=== PATIENT | female | born 2005 | race Caucasian/White ===

== ENCOUNTER 2023-12-14 10:36 | Emergency (ER) | payer OTHER, SELFPAY ==
[2023-12-14] VITALS (7 sets, daily range): BP systolic 116–132; BP diastolic 61–85; PULSE 71–85; RESP 18; TEMP 36.9; O2SAT 92–99; BMI 31.5
--- NOTE | 2023-12-14 10:52 | PC.NURSE ---
DR HERNANDEZ AT BEDSIDE
--- NOTE | 2023-12-14 10:55 | US_ITS ---
FINAL REPORT CLINICAL HISTORY: RUQ pain, positive wray sign FINDINGS: Sonographic images of the right upper quadrant were obtained. The pancreas is partially obscured.The liver has an unremarkable appearance. The gallbladder was difficult to evaluate on this exam as it is somewhat contracted. There do appear to be stones and sludge present within the gallbladder, as there is some echogenic material with posterior acoustical shadowing noted. There is no evidence of biliary ductal dilatation.The common duct measures 3 mm. Limited images of the right kidney are unremarkable. IMPRESSION: Gallbladder somewhat difficult to evaluate secondary to contraction. There do appear to be stones and sludge present within the gallbladder, as described above. No biliary ductal dilatation is seen. A follow-up ultrasound would confirm if clinically indicated. Reviewed, Interpreted and Dictated by Alessandro Jacobson MD Transcribed by Kaykay Baker Authenticated and . [facility]
--- NOTE | 2023-12-14 11:00 | HMH.EDGENADL ---
Discharge Plan Disposition Patient Disposition: Home, Self-Care Condition: Good Prescriptions Prescriptions: No Action No Known Home Medications Referrals Follow up/Referrals: Patricia Cheng PA [Primary Care Provider] - See instructions Activity Restrictions/Add. Instructions Additional Instructions/Restrictions: You were evaluated in the emergency department today. You were found to have gallstones and biliary sludge, which could have been causing your symptoms, but labs are otherwise reassuring today. If your symptoms recur, you may need evaluation to potentially have your gallbladder removed. Please keep follow-up with your primary care provider as well as your cardiology team. I would ask for referral to general surgery from your primary care provider and cardiology team for evaluation of your gallbladder just in case it continues to cause you issues. Return to the emergency department for new or worsening symptoms. Clinical Impressions Clinical Impression: Abdominal pain, RUQ, Biliary sludge, Gallstones Stand Alone Forms Stand Alone Forms: Work/School Release Instructions Patient Instructions: DI for Gallstones, DI for Acute Abdominal Pain Discharge ED Provider: Antonette Issa General Adult HPI General Chief complaint: Abdominal Pain Stated complaint: right side pain radiating to back Time Seen by Provider: 12/14/23 10:47 Mode of Arrival: Ambulatory Source of Information: Patient Limitations: No Limitations Description of Symptoms (Recalled from ER Triage Doc. 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 Patient reports that the pain started this morning. She notes that she has a history of issues with her liver secondary to medication that she has been on chronically for her cardiac issues, however she never had pain like this. She notes that it radiates to her back. She denies any fevers, chills, nausea, vomiting, changes in bowel movements, urinary symptoms, or other concerns. She denies any chest pain, shortness of breath, or other concerns as well. She reports compliance with her medications. Related Data Home Medications Medication Instructions Recorded Confirmed No Known Home Medications 02/02/23 02/02/23 Allergies Allergy/AdvReac Type Severity Reaction Status Date / Time No Known Allergies Allergy Verified 02/02/23 17:14 [facility] Disclaimer: The information contained in this section may have been updated after the patient was seen, as this information can be updated by other users. Social History Smoking Status: Never smoker alcohol intake: never current occupational status: employed Travel in the last 8 weeks: None ROS Obtained: Yes All systems reviewed & no additional complaints except as documented Physical Exam General General appearance: alert and in no apparent distress Head Head exam: atraumatic and normocephalic Eye Eye exam: Present normal appearance, PERRL and EOMI ENT ENT exam: Present normal exam, normal oropharynx, mucous membranes moist and normal external ear exam Neck Neck exam: Present normal inspection, full ROM and trachea midline; Absent tenderness Chest Chest inspection: Present normal inspection and symmetric chest wall rise; Absent tenderness Respiratory Respiratory exam: Present normal lung sounds bilaterally; Absent respiratory distress, wheezes, stridor or accessory muscle use Cardiovascular Cardiovascular exam: Present regular rate, normal rhythm and diastolic murmur Abdominal Exam Abdominal exam: Present soft, tenderness (Right upper quadrant) and Burk's sign; Absent distention, guarding, rebound or rigidity Extremities Exam Extremities exam: Present normal inspection, full ROM and normal capillary refill; Absent tenderness or edema Back Exam Back exam: Present normal inspection and full ROM; Absent tenderness Neurological Exam Neurological exam: Present alert, oriented X3, CN II-XII intact and normal gait; Absent motor sensory deficit Psychiatric Psychiatric exam: Present normal affect and normal mood Skin Skin exam: Present warm and dry Medical Decision Making Medical Records Medical records reviewed: Yes I reviewed the patient's medical records. Misha Inquiry Pt receiving controlled substance: No Vital Signs: 12/14/23 10:42 12/14/23 10:45 12/14/23 11:00 Temperature 98.4 F Temperature Source Oral Pulse Rate 85 77 Pulse Rate [Right Radial] 77 Respiratory Rate 18 Blood Pressure 132/85 118/66 Blood Pressure [Right Arm] 132/85 Blood Pressure Mean [Right Arm] 100 02 Sat by Pulse Oximetry 99 92 L 93 L Oxygen Delivery Method Room Air Room Air 12/14/23 11:02 12/14/23 15:00 12/14/23 15:30 Temperature Temperature Source Pulse Rate 81 72 71 Pulse Rate [Right Radial] Respiratory Rate Blood Pressure 116/64 116/61 116/70 Blood Pressure [Right Arm] Blood Pressure Mean [Right Arm] 02 Sat by Pulse Oximetry 94 L 94 L 94 L Oxygen Delivery Method Room Air Room Air Lab Data Lab results reviewed: Yes I reviewed the patient's lab results. Lab Results 12/14/23 10:40: Urine Color Yellow, Urine Appearance Clear, Urine pH 6.0, Ur Specific Aiken >= 1.030, Urine Protein Negative, Urine Glucose (UA) Negative, Urine Ketones Negative, Urine Blood Negative, Urine Nitrate Negative, Urine Bilirubin 1+ A, Urine Urobilinogen 1.0, Ur Leukocyte Esterase Negative, Urine RBC None, Urine WBC 5-10, Ur Squamous Epith Cells 5-10, Urine Bacteria 1+ 12/14/23 10:45: WBC 5.3, RBC 4.62, Hgb 14.6, Hct 44.5, MCV 96.4, MCH 31.6 H, MCHC 32.8, RDW 14.3, Plt Count 133 L, MPV 9.5, Neut % (Auto) 74.3, Lymph % (Auto) 17.1, Knott % (Auto) 5.4, Eos % (Auto) 2.3, Baso % (Auto) 0.9, Neut # (Auto) 3.9, Lymph # (Auto) 0.9, Knott # (Auto) 0.3, Eos # (Auto) 0.1, Baso # (Auto) 0.1, PT 13.6 H, INR 1.28 H, APTT 40.6 H, Sodium 141, Potassium 3.7, Chloride 111 H, Carbon Dioxide 20 L, Anion Gap 13.7, BUN 13, Creatinine 0.50 L, Estimated Creat Clear 229, Estimated GFR 157, Est GFR ( Amer) 190, Glucose 104 H, Calcium 9.6, Total Bilirubin 0.7, AST 24, ALT 30, Alkaline Phosphatase 60, Total Protein 7.7, Albumin 4.7, Globulin 3.0, Albumin/Globulin Ratio 1.6, Lipase 62, Serum HCG, Qual Negative 12/14/23 10:45 12/14/23 10:45 Orders (Tests/Meds): ED MEDICATIONS Generic Name Dose Route Start Last Admin Trade Name Freq PRN Reason Stop Dose Admin Sodium Chloride 10 ml 12/14/23 10:52 Sodium Chloride 0.9% 10ml Flush Syringe IV 01/13/24 10:51 NEEDED PRN Maintain IV Site Discontinued Medications Generic Name Dose Route Start Last Admin Trade Name Freq PRN Reason Stop Dose Admin Iopamidol 70 ml 12/14/23 14:29 12/14/23 14:29 Iopamidol-370 (76%);100ml Bottle IV 12/14/23 14:30 70 ml ONCE ONE Administration Sodium Chloride 50 ml 12/14/23 14:29 12/14/23 14:29 0.9 % Sodium Chloride 50 Ml Vial IV 12/14/23 14:30 50 ml ONCE ONE Administration Sodium Chloride 10 ml 12/14/23 14:29 12/14/23 14:29 Sodium Chloride 0.9% 10ml Syr (Rad Only) IV 12/14/23 14:30 10 ml ONCE ONE Administration ORDERS Category Date Time Status CT abdomen pelvis w con Stat Cat Scan 12/14/23 12:[address] angio chest PE protocol Stat Cat Scan 12/14/23 12:52 Taken US abdomen limited Stat Exams 12/14/23 10:55 Taken Activated Partial Thrombo Time Stat Lab 12/14/23 10:45 Completed Complete Blood Count Auto Diff Stat Lab 12/14/23 10:45 Completed Comprehensive Metabolic Panel Stat Lab 12/14/23 10:45 Completed HCG Qualitative, Serum Stat Lab 12/14/23 10:45 Completed Lipase Stat Lab 12/14/23 10:45 Completed Prothrombin Time INR Stat Lab 12/14/23 10:45 Completed Urinalysis and Microscopic Stat Lab 12/14/23 10:40 Completed Medical Decision Narrative: In summary, this patient is a 18-year-old female presenting to the Emergency Department for evaluation of right upper quadrant abdominal pain. Differential diagnoses considered include but are not limited to cholecystitis, cholelithiasis, hepatitis, pancreatitis, constipation, colitis, worsening IVC thrombus. Ruling out the most morbid conditions drove assessment. It should be noted patient's history includes extensive cardiac history as detailed in HPI as well as her history of IVC thrombus which are believed to be at goal therapy. This complicates all aspects of care by increasing patient's risk for morbidity. I reviewed patient's past medical records at [facility] and noted her previous procedures there is detailed in HPI. On exam, the patient is nontoxic-appearing with reassuring vital signs on cardiac telemetry. She is in no acute distress. She does have right upper quadrant tenderness with positive Burk sign. Otherwise, exam is reassuring. Workup included CBC, CMP, PT, PTT, lipase, urinalysis, test, and right upper quadrant ultrasound. I independently interpreted ultrasound prior to the radiologist read and noted gallstones without findings concerning for cholecystitis. Please see their read for final interpretation. Labs were obtained that demonstrated no leukocytosis, no transaminitis, and normal bilirubin and lipase. CT scan of the chest, abdomen, and pelvis were obtained to further evaluate. On multiple subsequent reassessments, she states that her pain resolved and she is no longer having pain at this time. She has had no nausea, vomiting, or other concerns. CT scan demonstrates gallstones without secondary findings concerning for cholecystitis. I advised the patient that this could be causing her symptoms, but I do not feel that she requires emergent intervention at this time with no fever, resolution of symptoms, and reassuring lab. Advised that she follow-up very closely outpatient for this. I called and had an interactive discussion with [facility] pediatric cardiology, Dr. Boateng, as radiology had noted concern that the Fontan stent was not opacified by IV contrast. Per Dr. Boateng, it is to be expected since her contrast was administered through an upper extremity peripheral IV instead of the lower extremity IV. She stated that she had we wish to evaluate the Fontan anatomy, we would have to place a lower extremity IV for IV contrast. Since the patient symptoms have resolve and is compliant with her home Xarelto d, she states that she feels that this is not necessary at this time. Patient already has close follow-up with them arranged. At this time, it is felt the patient is appropriate for discharge. She was given instructions for close patient follow-up, strict return precautions, and she was discharged in stable condition after all questions were answered. NOTE THAT IF THE PATIENT NEEDS EVALUATION OF FONTAN ANATOMY, PLACE LOWER EXTREMITY IV FOR IV CONTRAST Critical Care Critical Care Time Critical Care Time: No
[2023-12-14 11:01] LABS: Microscopic, Urine URINE MICROSCOPIC (MICROSCOPIC)
[2023-12-14 11:02] LABS: Basophils # 0.1 K/mm3 (0-0.2); Basophils % 0.9 % (0.1-2.0); Eosinophils # 0.1 K/mm3 (0.0-0.4); Eosinophils % 2.3 % (0.1-12.0); Hematocrit 44.5 % (37.0-47.0); Hemoglobin 14.6 g/dL (12.2-16.2); Lymphocytes # 0.9 K/mm3 (0.7-4.5); Lymphocytes % 17.1 % (10-50); Mean Corpuscular HGB Conc 32.8 g/dL (31.8-35.4); Mean Corpuscular Hemoglobin 31.6 pg (27.0-31.2); Mean Corpuscular Volume 96.4 fl (81-99); Mean Platelet Volume 9.5 fl (7.4-10.4); Monocytes # 0.3 K/mm3 (0.1-1.0); Monocytes % 5.4 % (1.7-9.3); Neutrophils # 3.9 K/mm3 (1.8-7.8); Neutrophils % 74.3 % (37.0-80.0); Platelet Count 133 K/mm3 (142-424); Red Blood Count 4.62 M/mm3 (4.20-5.40); Red Cell Distribution Width 14.3 % (11.5-17.5); White Blood Count 5.3 K/mm3 (4.5-13.0)
--- NOTE | 2023-12-14 11:03 | PC.NURSE ---
PT TO US
[2023-12-14 11:04] LABS: Chloride 111 mmol/L (98-107); Potassium 3.7 mmoL/L (3.5-5.1); Sodium 141 mmol/L (136-145)
[2023-12-14 11:07] LABS: Alanine Aminotransferase 30 U/L (12-78); Albumin Level 4.7 g/dl (3.5-5.0); Albumin/Globulin Ratio 1.6 (1.1-1.8); Alkaline Phosphatase 60 U/L (38-126); Anion Gap 13.7 mEq/L (5-15); Aspartate Amino Transferase 24 U/L (14-36); Bilirubin,Total 0.7 mg/dl (0.2-1.3); Blood Urea Nitrogen 13 mg/dl (7-17); Calcium 9.6 mg/dl (8.4-10.2); Carbon Dioxide 20 mmol/L (22.0-30.0); Creatinine Clearance Estimated 229 mL/min (50-200); Estimated Glomerular Filt Rate 157 ml/min (>60); GFR (African American) 190 ML/MIN (>60); Glucose 104 mg/dl (74-100); Lipase 62 U/L (23-300); Total Protein,Serum 7.7 g/dl (6.3-8.2)
[2023-12-14 11:12] LABS: Activated Partial Thrombo Time 40.6 seconds (22.8-30.6); INR 1.28 (0.9-1.1); Prothrombin Time 13.6 seconds (10.1-12.5)
[2023-12-14 11:16] LABS: Appearance,Urine CLEAR (Clear); Blood, Urine Negative (Negative); Color,Urine YELLOW (Yellow); Glucose,Urine (UA) Negative (Negative); Ketones,Urine Negative (Negative); Leukocyte Esterase,Urine Negative (Negative); Nitrate,Urine Negative (Negative); Protein,Urine Negative (Negative); Specific Gravity, Urine >= 1.030 (1.005-1.030)
[2023-12-14 11:53] LABS: Bilirubin,Urine 1+ (Negative)
[2023-12-14 11:54] LABS: Bacteria,Urine 1+ /lpf
--- NOTE | 2023-12-14 12:52 | CT_ITS ---
FINAL REPORT TECHNIQUE: After the administration of oral and intravenous contrast, axial images were obtained through the abdomen and pelvis by computed tomography. The study was performed with techniques to keep radiation dose as low as reasonably achievable, (ALARA). Individual dose reduction techniques using automated exposure control or adjustment of mA and/or kV according to the patient's size were employed. CLINICAL HISTORY: RUQ pain, h/o IVC/portal vein thrombosis COMPARISON: None FINDINGS: Abdomen: As described on the CTA of the chest from the same date the patient has double inlet left ventricle and has undergone a previous Fontan procedure. There are postoperative changes with a graft/stent in the inferior vena cava to an anastomosis with the pulmonary artery. This is described in the CT of the chest. There are no upper abdominal collaterals to suggest thrombosis of the inferior vena cava. The portal vein appears patent, also without evidence of thrombosis. The liver parenchyma is somewhat heterogeneous, with a focus of increased density after contrast administration that likely represents a small 9 mm posterior right lobe of the liver OPAL, transient hepatic attenuation difference. The gallbladder is contracted and filled with gallstones. The spleen, pancreas, adrenals and kidneys appear unremarkable. The aorta is normal in caliber. There is no free fluid or adenopathy. Pelvis: The appendix is not identified. The urinary bladder is unremarkable. There is no free fluid or adenopathy. IMPRESSION: The portal vein and inferior vena cava appear patent, and there is no evidence of collaterals in the upper abdomen to suggest thrombosis of the inferior vena cava. The gallbladder is contracted and filled with gallstones. The patient has double inlet left ventricle and has undergone a previous Fontan procedure as described in the CTA dictation of the chest from the same date. Reviewed, Interpreted and Dictated by Alessandro Jacobson MD Transcribed by Kaykay Baker Authenticated and [facility]
--- NOTE | 2023-12-14 12:52 | CT_ITS ---
FINAL REPORT CLINICAL HISTORY: RUQ pain, h/o IVC/portal vein thrombosis COMPARISON: None FINDINGS: CTA CHEST FINDINGS: The patient has a history of a double inlet left ventricle. She has undergone a Fontan procedure in the past, and there is graft/stent material noted extending from the upper chest to the level of the hemidiaphragm on the right side. Within the IVC to pulmonary artery shunt, it is difficult to determine if blood is opacified by contrast. This is favored to be from beam hardening rather than from thrombosis. No pulmonary artery filling defects are identified to suggest PE. There is no aortic dissection. There is no axillary adenopathy. There is no hilar or mediastinal adenopathy. There is no pericardial or pleural effusion. No suspicious infiltrate or nodule is identified. IMPRESSION: The patient clinically has double inlet left ventricle and has undergone a Fontan procedure, with postoperative changes as described above. The graft/stent material noted in the lower and mid chest, and it is difficult to determine if blood is opacified by contrast. This is favored to be beam hardening rather than from thrombosis. No pulmonary artery filling defects are seen to suggest pulmonary emboli. Reviewed, Interpreted and Dictated by Alessandro Jacobson MD Transcribed by Kaykay Baker Authenticated and [facility]
[2023-12-14 13:56] LABS: HCG Qualitative, Serum Negative (Negative)
--- NOTE | 2023-12-14 14:05 | PC.NURSE ---
PT TO CT
[2023-12-14] MEDS: 0.9 % SODIUM CHLORIDE 50 ML VIAL IV (14:29)
[2023-12-14] MEDS: SODIUM CHLORIDE 0.9% 10ML SYR (RAD ONLY) 10 ML IV (14:29)
[2023-12-14] MEDS: IOPAMIDOL-370 (76%);100ML BOTTLE 70 ML IV (14:29)
--- NOTE | 2023-12-14 15:18 | PC.NURSE ---
PT VISITOR CALLED OUT FOR ME TO COME IN ROOM SHE STATES SHE KILLED A BEDBUG ON THE WALL AND ANOTHER ON THE FLOOR I RETRIEVED ONE FROM THE FLOOR AND SENT TO LAB TO CONFIRM BEDBUG AT THIS TIME
--- NOTE | 2023-12-14 15:23 | PC.NURSE ---
patient and vistor called out about a Bug on wall. Collected bug at this time, lab confirmed it was a BB at this time.
--- NOTE | 2023-12-14 15:41 | PC.NURSE ---
CALLED RAD TO POWER SHARE IMAGES TO [facility] AND BURN DISC
--- NOTE | 2023-12-14 15:42 | PC.NURSE ---
[facility] CALLING [facility]SF[facility] TO PER FOR PED CARDIOLOGY CONSULT. WILL BE TAKING OVER PT CARE AT THIS TIME
== END 2023-12-14 16:27 | disposition home or self-care (01) ==
PROVIDERS: Emergency Provider Emergency Medicine; PCP Physician Assistant
DX: R10.11 Right upper quadrant pain (principal); K83.8 Other specified diseases of biliary tract; K80.20 Calculus of gallbladder without cholecystitis without obstruction; Z86.79 Personal history of other diseases of the circulatory system; Z79.01 Long term (current) use of anticoagulants
CPT/HCPCS: 71275; 74177; 76705; 80053; 81001; 83690; 84703; 85025; 85610; 85730; 99285; Q9967